=== PATIENT | male | born 1995 | race Caucasian/White ===

== ENCOUNTER 2023-07-04 20:36 | Emergency (ER) | payer OTHER ==
[~2023-07-04] VITALS: Ht 182.9 cm; Wt 94.8 kg
[2023-07-04] MEDS ORDERED: KETOROLAC TROMETHAMINE INJ 30 MG/ML VIAL ONE (20:59)
[2023-07-04] MEDS ORDERED: KETOROLAC TROMETHAMINE INJ 30 MG/ML VIAL IM ONE (21:00)
[2023-07-04 21:26] VITALS: BP 166/87; TEMP 98; O2SAT 99
== END 2023-07-04 21:26 | disposition home or self-care (01) ==
LOC: ER 20:59
DX: M25.511 Pain in right shoulder (principal); V29.99XA Rider (driver) (passenger) of other motorcycle injured in unspecified traffic accident, initial encounter; Y93.89 Activity, other specified; Y92.89 Other specified places as the place of occurrence of the external cause; Y99.8 Other external cause status
CPT/HCPCS: 73030-TC; J1885